=== PATIENT | female | born 1955 | race Caucasian/White ===

== ENCOUNTER 2018-01-09 07:10 | Day surgery (SDC) | payer OTHER ==
[2018-01-09] MEDS: SOD CHLORIDE 0.9% 1,000 ML IV (09:00)
[2018-01-09] MEDS ORDERED: CEFAZOLIN 1 GM/50 ML (PMX) 50 ML IVPB (09:00)
[2018-01-09] MEDS ORDERED: ISOSULFAN BLUE 1% 5 ML INJ SC (09:38)
[2018-01-09] MEDS: ACETAMINOPHEN 500 MG TAB PO (10:25)
[2018-01-09] MEDS ORDERED: MIDAZOLAM 1 MG/ML 2 ML INJ (10:34)
[2018-01-09] MEDS ORDERED: PROPOFOL 40 ML (10:34)
[2018-01-09] MEDS ORDERED: FENTAnyl 50 MCG/ML VIAL (10:34)
[2018-01-09] MEDS ORDERED: LIDOCAINE 2% (SDV) 5 ML INJ (10:34)
[2018-01-09] MEDS ORDERED: ONDANSETRON 4 MG INJ (10:35)
[2018-01-09] MEDS ORDERED: DEXAMETHASONE 4 MG/ML 1 ML INJ (10:35)
[2018-01-09] MEDS ORDERED: CEFAZOLIN 1 GM INJ (10:35)
[2018-01-09] MEDS ORDERED: FAMOTIDINE 20 MG INJ (10:35)
[2018-01-09] MEDS ORDERED: PHENYLephrine (100 MCG/ML) 5ML SYG (11:06)
[2018-01-09] MEDS ORDERED: EPHEDrine SULFATE 50 MG/5 ML SYG (11:13)
[2018-01-09] MEDS ORDERED: OXYCODONE/ACETAMINOPHEN (5/325) TAB PO (12:30)
[2018-01-09] MEDS ORDERED: FENTAnyl 50 MCG/ML VIAL IV ×2 (12:30)
[2018-01-09] MEDS ORDERED: MEPERIDINE 25 MG INJ IV (12:30)
[2018-01-09] MEDS ORDERED: ALBUTEROL 0.083% (NEB) 2.5 MG/3 ML AMP HHN (12:30)
[2018-01-09] MEDS ORDERED: HYDROCODONE/APAP (7.5/325) TAB PO (12:30)
[2018-01-09] MEDS ORDERED: DIPHENHYDRAMINE 50 MG INJ IV (12:30)
[2018-01-09] MEDS ORDERED: LABETALOL HCL 20MG INJ IV (12:30)
[2018-01-09] MEDS ORDERED: morphine (1 MG/ML) 10ML SYRINGE IV ×2 (12:30)
[2018-01-09] MEDS: ONDANSETRON 4 MG INJ IV (12:34)
[2018-01-09] MEDS: HYDROmorphONE 1 MG/5 ML IV SYRINGE IV ×2 (12:35→13:50)
[2018-01-09] MEDS: OXYCODONE/ACETAMINOPHEN (5/325) TAB PO (13:41)
== END 2018-01-09 15:05 | disposition home or self-care (01) ==
LOC: SDS 07:10
DX: D05.12 Intraductal carcinoma in situ of left breast (principal); E03.9 Hypothyroidism, unspecified; F41.8 Other specified anxiety disorders
CPT/HCPCS: 19301; 71045; 88307; 93005

== ENCOUNTER 2018-02-24 08:46 | Day surgery (SDC) | payer OTHER ==
[2018-02-24] MEDS ORDERED: SOD CHLORIDE 0.9% 1,000 ML IV (10:00)
[2018-02-24] MEDS: CEFAZOLIN 2 GM/50 ML (PMX) 50 ML IVPB (10:00)
[2018-02-24] MEDS ORDERED: FENTAnyl 50 MCG/ML VIAL ×2 (10:38→12:09)
[2018-02-24] MEDS ORDERED: MIDAZOLAM 1 MG/ML 2 ML INJ (10:38)
[2018-02-24] MEDS ORDERED: PROPOFOL 20 ML (11:43)
[2018-02-24] MEDS ORDERED: LIDOCAINE 2% (SDV) 5 ML INJ (11:43)
[2018-02-24] MEDS ORDERED: CEFAZOLIN 1 GM INJ (11:43)
[2018-02-24] MEDS ORDERED: ONDANSETRON 4 MG INJ ×2 (11:44→12:10)
[2018-02-24] MEDS ORDERED: HYDROCODONE/APAP (7.5/325) TAB PO (12:00)
[2018-02-24] MEDS ORDERED: HYDROmorphONE 1 MG/5 ML IV SYRINGE IV ×2 (12:00)
[2018-02-24] MEDS ORDERED: DIPHENHYDRAMINE 50 MG INJ IV (12:00)
[2018-02-24] MEDS ORDERED: MEPERIDINE 25 MG INJ IV (12:00)
[2018-02-24] MEDS: ONDANSETRON 4 MG INJ IV (12:29)
[2018-02-24] MEDS: FENTAnyl 50 MCG/ML VIAL IV (12:29)
[2018-02-24] MEDS: HYDROCODONE/APAP (7.5/325) TAB PO (13:08)
== END 2018-02-24 13:55 | disposition home or self-care (01) ==
LOC: SUR 08:46 → SDS 08:46 → SUR 13:55
DX: D05.12 Intraductal carcinoma in situ of left breast (principal); E03.9 Hypothyroidism, unspecified; F41.8 Other specified anxiety disorders
CPT/HCPCS: 19301; 71045; 88307; 93005